=== PATIENT | male | born 1955 | race Caucasian/White ===

== ENCOUNTER 2016-11-01 20:31 | Emergency (ER) | payer MEDICARE, OTHER ==
--- NOTE | ~2016-11-01 | CR229 ---
[facility] A Service of [facility] & [facility] RADIOLOGY TEXT RESULTS PATIENT: SUSHIL KEENE LOCATION: [facility] : 53 UNIT #: [id number] AGE: [address]: NÉSTOR VILLAGRAN APRN SEX: M ORDER DR: [id number] [facility] [address] [place], [place] [address] [id number] E MR#: [id number] Acc #: [id number] NAME: SUSHIL KEENE : 1955 SEX: M STUDY DATE/TIME: 11/01/2016 19:59 UNIT: [facility] ROOM: STUDY DESCRIPTION: CR Shoulder Min 2 View Lt Attending Physician: Néstor Villagran Aprn Ordering Physician: Néstor Villagran Aprn Primary Care Physician: Royce Dillon M.D. MEDICAL IMAGING REPORT This report is preliminary unless electronic signature is present EXAM Left shoulder 3 views HISTORY Fell and hit shoulder 2 months ago. Shoulder pain and arm pain. FINDINGS 3 views of the left shoulder demonstrate satisfactory bone alignment. No fracture, joint space narrowing or dislocation. Mild degenerative changes at the acromioclavicular joint. IMPRESSION No acute findings. Mild degenerative changes at the acromioclavicular joint. Dictated by... Teo Salinas M.D. THIS IS AN ELECTRONICALLY VERIFIED REPORT Teo Salinas M.D. at 11/02/2016 3:55 PM MILTON/darryn TD: 11/02/2016 08:54 JOB #: [id number] MEDICAL IMAGING REPORT COPY
[~2016-11-01 20:31] MED LIST: AUGMENTIN PO; BACLOFEN10 MG PO; DOCU SOFT100 M1 PO; FLEXERIL PO; FLEXERIL10 M1 PO; FLEXERIL10 MG PO; HYDROCODON-ACE1 EAC4; HYDROCODON-ACE1 EAC5 PO; IBUPROFEN800 MG PO; LORTAB 7.5-5001 TAB PO; MEDROL DOSEPAK4 MG PO; MEDROL4 MG/DOSE- PO; MOBIC PO; MOBIC15 MG PO; NAPROSYN500 MG PO; NAPROXEN PO; NO MEDICATIONS; NORCO 10/3251 TAB PO; ORUDIS75 M1 DOB; ORUDIS75 M1 PO; PREDNISONE PO; TYLENOL #3 PO; TYLENOL #4 PO; VICODIN 5/1 TAB 5/50 PO
[2016-11-24] MEDS ORDERED: MOBIC (07:37)
[2016-11-24] MEDS ORDERED: NORCO1 TAB 10/3 (07:37)
[2016-11-24] MEDS ORDERED: NEURONTIN100 MG (07:37)
[2016-11-24] MEDS ORDERED: FLEXERIL10 MG (07:37)
== END 2016-11-01 20:56 | disposition home or self-care (01) ==
LOC: CFTX 20:31
DX: S46.912A Strain of unspecified muscle, fascia and tendon at shoulder and upper arm level, left arm, initial encounter (principal); Z88.0 Allergy status to penicillin; Z88.8 Allergy status to other drugs, medicaments and biological substances; F17.210 Nicotine dependence, cigarettes, uncomplicated; Y09 Assault by unspecified means; Y92.9 Unspecified place or not applicable
CPT/HCPCS: 73030; 99283

== ENCOUNTER 2016-11-18 11:42 | Emergency (ER) | payer MEDICARE, OTHER ==
--- NOTE | ~2016-11-18 | CR181 ---
[facility] A Service of [facility] & [facility] RADIOLOGY TEXT RESULTS PATIENT: SUSHIL KEENE LOCATION: [facility] : 54 UNIT #: [id number] AGE: [address]: Walter Chavis MD SEX: M ORDER DR: [id number] [facility] [address] [place], [place] [address] [id number] E MR#: [id number] Acc #: [id number] NAME: SUSHIL KEENE : 1955 SEX: M STUDY DATE/TIME: 11/18/2016 11:45 UNIT: [facility] ROOM: STUDY DESCRIPTION: CR Lumbar Spine 2 or 3 Views Attending Physician: Walter Chavis M.D. Ordering Physician: Walter Chavis M.D. Primary Care Physician: Royce Dillon M.D. MEDICAL IMAGING REPORT This report is preliminary unless electronic signature is present EXAM Lumbar spine series 11/18/2016 1145 hours HISTORY 60-year-old man with history of degenerative disc disease complaining of low back pain for 1 week. Patient unable to lie flat on his back. COMPARISON 08/29/2016 FINDINGS PA, lateral views of lumbar spine and a cone lateral view of the lumbosacral junction were performed. Again demonstrated is multilevel disc height loss, endplate sclerosis and endplate spurring similar to prior exam. There is a few millimeters retrolisthesis of L5 on S1 which is unchanged. There is very mild facet arthropathy. IMPRESSION Again demonstrated is severe multilevel degenerative disc disease with disc height loss, endplate sclerosis and spurring throughout the lumbar spine. There is a few millimeters retrolisthesis of L5 and S1 which is unchanged. There is no acute compression fracture. No significant facet arthropathy is seen. Findings are similar to CT abdomen and pelvis 09/22/2014 and lumbar spine series 08/29/2016. Dictated by... Kim Aleman M.D. THIS IS AN ELECTRONICALLY VERIFIED REPORT Kim Aleman M.D. at 11/18/2016 1:56 PM ROXY/kalpana TD: 11/18/2016 12:43 [facility] A Service of [facility] & [facility] RADIOLOGY TEXT RESULTS PATIENT: SUSHIL KEENE LOCATION: [facility] #: [id number] : 53 UNIT #: [id number] AGE: [address]: Walter Chavis MD SEX: M ORDER DR: JOB #: [id number] MEDICAL IMAGING REPORT Page 1 of 1 COPY
[2016-11-24] MEDS ORDERED: FLEXERIL10 MG (07:37)
[2016-11-24] MEDS ORDERED: NORCO1 TAB 10/3 (07:37)
[2016-11-24] MEDS ORDERED: NEURONTIN100 MG (07:37)
[2016-11-24] MEDS ORDERED: MOBIC (07:37)
== END 2016-11-18 13:00 | disposition home or self-care (01) ==
LOC: CED 11:42
DX: M51.37 Other intervertebral disc degeneration, lumbosacral region (principal); G89.29 Other chronic pain; M54.6 Pain in thoracic spine; F17.210 Nicotine dependence, cigarettes, uncomplicated; I10 Essential (primary) hypertension; Z88.0 Allergy status to penicillin
CPT/HCPCS: 72100; 96372; 99283; J1170

== ENCOUNTER 2016-11-24 07:44 | Emergency (ER) | payer MEDICARE, OTHER ==
[~2016-11-24 07:44] MED LIST changes: +FLEXERIL10 MG; +MOBIC; +NEURONTIN100 MG; +NORCO1 TAB 10/3
== END 2016-11-24 08:52 | disposition home or self-care (01) ==
LOC: SED 07:44
DX: S39.012A Strain of muscle, fascia and tendon of lower back, initial encounter (principal); F17.200 Nicotine dependence, unspecified, uncomplicated; Z88.0 Allergy status to penicillin; X58.XXXA Exposure to other specified factors, initial encounter; Y92.89 Other specified places as the place of occurrence of the external cause
CPT/HCPCS: 96372; 99283; J1885

== ENCOUNTER 2017-03-11 17:54 | Emergency (ER) | payer MEDICARE, OTHER ==
[~2017-03-11] VITALS: Ht 177.8 cm; Wt 81.6 kg
--- NOTE | ~2017-03-11 | CR173 ---
[facility] A Service of [facility] & [facility] RADIOLOGY TEXT RESULTS PATIENT: SUSHIL KEENE LOCATION: [facility] : 53 UNIT #: [id number] AGE: [address]: Adriana Clark APRN SEX: M ORDER DR: [id number] [place] [id number] [facility] [place], [place] [address] [id number] E MR#: [id number] Acc #: [id number] NAME: SUSHIL KEENE : 1955 SEX: M STUDY DATE/TIME: 03/11/2017 20:00 UNIT: [facility] ROOM: STUDY DESCRIPTION: CR Knee 3 Views Rt Attending Physician: Adriana Clark A.P.R.N. Ordering Physician: Adriana Clark A.P.R.N. Primary Care Physician: Royce Dillon M.D. MEDICAL IMAGING REPORT This report is preliminary unless electronic signature is present EXAM Right knee, 3 views COMPARISON None INDICATIONS 61-year-old male with right knee pain for 2 months. No known injury. FINDINGS There is a fabella, a normal anatomic variant. There is a separate heterotopic calcification seen posterior to the knee measuring up to 1.4 cm, possibly representing an osteochondroma within a Mahmood cyst. There is mild osteophyte formation at the posterior tibial plateau. There is minimal osteophyte formation at both poles of the patella. There is a small suprapatellar effusion. Bones are anatomically aligned. No evidence of acute fracture. IMPRESSION 1. Small suprapatellar effusion. No evidence of acute fracture or dislocation. 2. 1.4 cm calcium density seen posterior to the knee. This could represent an osteochondroma, possibly within a Mahmood cyst. Clinical correlation recommended. Dictated by... Preet Mason M.D. THIS IS AN ELECTRONICALLY VERIFIED REPORT Preet Mason M.D. at 03/18/2017 8:26 PM KAVITHA/bc TD: 03/12/2017 02:13 [facility] A Service of [facility] & [facility] RADIOLOGY TEXT RESULTS PATIENT: SUSHIL KEENE LOCATION: [facility] : 53 UNIT #: [id number] AGE: [address]: Adriana Clark APRN SEX: M ORDER DR: NOEMI #: [id number] MEDICAL IMAGING REPORT Page 1 of 1 COPY
== END 2017-03-11 21:39 | disposition home or self-care (01) ==
LOC: CFTX 17:54 → CED 17:54 → CFTX 19:37
DX: M71.21 Synovial cyst of popliteal space [Baker], right knee (principal); Z88.0 Allergy status to penicillin; M54.9 Dorsalgia, unspecified; G89.29 Other chronic pain; F17.210 Nicotine dependence, cigarettes, uncomplicated; Z88.8 Allergy status to other drugs, medicaments and biological substances
CPT/HCPCS: 29530; 73562; 99283; J1885